=== PATIENT | female | born 1985 | race Hispanic/Latino ===

== ENCOUNTER 2017-10-26 20:35 | Emergency (ER) | payer OTHER ==
[~2017-10-26] VITALS: Ht 154.9 cm; Wt 56.7 kg
[~2017-10-26 20:35] MED LIST: TAMIFLU75 M1 PO
--- NOTE | 2017-10-26 21:08 | ED GI/GU/ABDOMINAL COMPLAINT ---
History of Present Illness General Chief Complaint: General Adult Stated Complaint: 34 WEEKS , COMPLICATIONS Source: patient, family, old records Exam Limitations: no limitations Vital Signs & Intake/Output Vital Signs & Intake/Output Vital Signs Date Time Temp Pulse Resp B/P B/P Pulse O2 O2 Flow FiO2 Mean Ox Delivery Rate 10/27 0010 98.0 115 18 99/54 97 Room Air 10/26 2150 97 Room Air 10/269 97.9 132 20 134/63 98 Room Air ED Intake and Output 10/27 0000 10/26 1200 Intake Total 1000 Output Total Balance 1000 Intake, IV 1000 Patient 125 lb Weight Weight Reported by Patient Measurement Method Allergies Coded Allergies: No Known Allergies (08/17/17) Reconcile Medications Oseltamivir Phosphate (Tamiflu) 75 MG CAPSULE 1 CAP PO BID flu Triage Note: PT IS 33 WKS 5 DAYS . SENT TO ED BY OB FOR HYDRATION WITH LR. HAD ONE EPISODE OF VOMITTING THIS AM, HAS HAD APPROX 10 EPISODES ("SMALL AMOUNTS") OF WATERY DIARRHEA SINCE, DENIES ANY EFREN BLOOD. +NAUSEA. HR 132 IN TRIAGE. STATES HAS HAD GONZALEZ SERRATO LIKE PAINS AND "MENSTRAL CRAMPING" TYPE PAINS THROUGHOUT THE DAY. "BUT THEY ARE MUCH STRONGER" PAINS ARE IN LOW ABD AND SOMETIMES COMES UP TO UMBILICOUS, ALSO GOES INTO GROIN. CBC AWARE PATIENT IN ED AND WILL COME OVER TO CHECK ON PATIENT Triage Nurses Notes Reviewed? yes ? y Is pt currently ? No HPI: Patient is 33 weeks 5 days . There have been no problems during this . Patient woke up this morning and had diarrhea. She then had 1 episode of vomiting. She has been intermittently nauseous throughout the day and has had several episodes of diarrhea but no further episodes of vomiting. Patient is now feeling abdominal contractions. Patient comes to the emergency department for evaluation. Past History Travel History Traveled to [place] past 21 day No Medical History Any Pertinent Medical History? see below for history Neurological: NONE EENT: NONE Cardiovascular: NONE Respiratory: NONE Gastrointestinal: NONE Hepatic: NONE Renal: NONE Musculoskeletal: NONE Psychiatric: NONE Endocrine: NONE Blood Disorders: anemia Cancer(s): NONE Surgical History Surgical History: non-contributory Psychosocial History What is your primary language Pakistani Tobacco Use: Never used ETOH Use: denies use Illicit Drug Use: denies illicit drug use Family History Hx Contributory? No Review of Systems Review of Systems Constitutional: Reports: no symptoms. EENTM: Reports: no symptoms. Respiratory: Reports: no symptoms. Cardiovascular: Reports: no symptoms. GI: Reports: see HPI, abdominal pain, diarrhea, nausea, vomiting. Genitourinary: Reports: no symptoms. Musculoskeletal: Reports: no symptoms. Skin: Reports: no symptoms. Neurological/Psychological: Reports: no symptoms. Hematologic/Endocrine: Reports: no symptoms. Immunologic/Allergic: Reports: no symptoms. All Other Systems: Reviewed and Negative Physical Exam Physical Exam General Appearance: well developed/nourished, alert, awake, anxious, mild distress Head: atraumatic, normal appearance Eyes: Bilateral: PERRL, EOMI. Ears, Nose, Throat, Mouth: hearing grossly normal, DRY MUCOSA Neck: normal inspection, supple, full range of motion Respiratory: normal breath sounds, chest non-tender, no respiratory distress, lungs clear Cardiovascular: regular rate/rhythm, normal peripheral pulses Gastrointestinal: normal bowel sounds, soft, non-tender Back: normal inspection, normal range of motion Extremities: normal range of motion Neurologic/Psych: no motor/sensory deficits, awake, alert, oriented x 3, normal mood/affect Skin: intact, normal color, warm/dry Core Measures ACS in differential dx? No Sepsis Present: No Sepsis Focused Exam Completed? 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 Plan of Care: Orders Procedure Date/time Status COMPREHENSIVE METABOLIC PANEL 10/26 2120 Complete CBC WITHOUT DIFFERENTIAL 10/26 2120 Complete URINALYSIS 10/26 2058 Complete Laboratory Tests 10/26/17 2358: Urinalysis LIGHT H, Urine Color YEL, Urine Clarity HAZY H, Urine pH 6.0, Ur Specific [place] 1.020, Urine Protein NEG, Urine Ketones >=80, Urine Nitrite NEG , Urine Bilirubin NEG, Urine Urobilinogen 0.2, Ur Leukocyte Esterase TRACE H, Ur Microscopic SEDIMENT EXAMINED, Urine RBC 1-3, Urine WBC 3-5 H, Ur Epithelial Cells FEW, Urine Crystals RARE UR AC, Urine Bacteria RARE H, Urine Mucus FEW, Urine Hemoglobin NEG, Urine Glucose NEG 10/26/170: Anion Gap 16, Estimated GFR > 60, BUN/Creatinine Ratio 18.0, Glucose 77, Calcium 9.0, Total Bilirubin 1.1, AST 59 H, ALT 36, Alkaline Phosphatase 163 H, Total Protein 7.9, Albumin 4.1, Globulin 3.8, Albumin/Globulin Ratio 1.1, CBC w Diff NO MAN DIFF REQ, RBC 4.66, MCV 85.2, MCH 29.3, MCHC 34.4, RDW 16.0 H, MPV 7.3 L, Gran % 93.8 H, Lymphocytes % 4.0 L, Monocytes % 2.2, Eosinophils % 0, Basophils % 0, Absolute Granulocytes 9.7 H, Absolute Lymphocytes 0.4 L, Absolute Monocytes 0.2, Absolute Eosinophils 0, Absolute Basophils 0 Initial ED EKG: none Comments: Patient is feeling much better. Patient has received 2 L of lactated Ringer's. Patient is now able to urinate for us. Patient states that her contractions are much better and now they just feel I could Gonzalez Serrato contractions that she has been getting for the past few weeks. Departure Departure Disposition: HOME OR SELF CARE Condition: Stable Clinical Impression Primary Impression: Secondary Impressions: Diarrhea, Vomiting Referrals: Patient Has No Primary Care Dr (PCP/Family) Additional Instructions: FOLLOW UP WITH DR. SETH RETURN IF SYMPTOMS WORSEN OR FOR ANY CONCERNS Departure Forms: Customer Survey General Discharge Information Departure Forms: Customer Survey General Discharge Information
[2017-10-26 21:39] LABS: ABSOLUTE BASOPHIL COUNT 0 /CUMM (0.0-0.2); ABSOLUTE EOSINOPHIL COUNT 0 /CUMM (0.0-0.7); ABSOLUTE GRANULOCYTE CT 9.7 /CUMM (1.4-6.5); ABSOLUTE LYMPH COUNT 0.4 /CUMM (1.2-3.4); ABSOLUTE MONOCYTE COUNT 0.2 /CUMM (0.10-0.60); BASOPHIL % 0 % (0.0-2.0); EOSINOPHIL % 0 % (0-5); HEMATOCRIT 39.7 % (37-47); MEAN CORPUSCULAR HGB 29.3 PG (27.0-31.0); MEAN CORPUSCULAR HGB CONC 34.4 G/DL (33.0-37.0); MEAN CORPUSCULAR VOLUME 85.2 FL (81.0-99.0); MEAN PLATELET VOLUME 7.3 FL (7.4-10.4); PLATELET COUNT 257 /CUMM (130-400); RED BLOOD CELL CT 4.66 /CUMM (4.20-5.40); WHITE BLOOD CELL COUNT 10.4 /CUMM (4.8-10.8)
[2017-10-26 21:52] LABS: GRANULOCYTE % 93.8 % (42.2-75.2)
[2017-10-27 00:10] VITALS: BP 99/54
== END 2017-10-27 00:17 ==
LOC: ERH 20:35
PROVIDERS: Emergency Medicine
DX: O21.9 Vomiting of pregnancy, unspecified (principal); R19.7 Diarrhea, unspecified; Z3A.33 33 weeks gestation of pregnancy
CPT/HCPCS: 59025; 81001; 96365; 96375; G0463; J2405; J7120

== ENCOUNTER 2017-11-26 11:12 | Inpatient (IN) | payer OTHER ==
[~2017-11-26] VITALS: Ht 157.5 cm; Wt 56.7 kg
[2017-11-26 12:12] LABS: ABSOLUTE BASOPHIL COUNT 0 /CUMM (0.0-0.2); ABSOLUTE EOSINOPHIL COUNT 0 /CUMM (0.0-0.7); ABSOLUTE GRANULOCYTE CT 6.7 /CUMM (1.4-6.5); ABSOLUTE LYMPH COUNT 1.7 /CUMM (1.2-3.4); ABSOLUTE MONOCYTE COUNT 0.6 /CUMM (0.10-0.60); BASOPHIL % 0.4 % (0.0-2.0); EOSINOPHIL % 0.3 % (0-5); GRANULOCYTE % 73.6 % (42.2-75.2); HEMATOCRIT 36.7 % (37-47); MEAN CORPUSCULAR HGB 28.4 PG (27.0-31.0); MEAN CORPUSCULAR HGB CONC 33.3 G/DL (33.0-37.0); MEAN CORPUSCULAR VOLUME 85.2 FL (81.0-99.0); MEAN PLATELET VOLUME 7.1 FL (7.4-10.4); PLATELET COUNT 338 /CUMM (130-400); WHITE BLOOD CELL COUNT 9.1 /CUMM (4.8-10.8)
[2017-11-26 12:21] VITALS: BP 140/71
[2017-11-26] MEDS ORDERED: PRENATABS RX T1 EACH PO (12:22)
--- NOTE | 2017-11-26 19:59 | History & Physical ---
General Information and HPI MD Statement: I have seen and personally examined ZARA GOMEZ and documented this H&P. The patient is a 32 year old female at [38] weeks and [0] days gestation who presented with a chief complaint of [SROM]. History of Present Illness: This patient is a 32-year-old 4 para 2 EDC 12/09/2017 presents today with spontaneous rupture of membranes. His emanation reveals gross rupture and positive and Essure by laboratory data. care is complete and unremarkable. Past OB history significant for 2 spontaneous vaginal deliveries 3000 g each. 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 EENTM: Reports: no symptoms. Cardiovascular: Reports: no symptoms. Respiratory: Reports: no symptoms. GI: Reports: no symptoms. Genitourinary: Reports: see HPI. Musculoskeletal: Reports: no symptoms. Skin: Reports: no symptoms. Neurological/Psychological: Reports: no symptoms. Hematologic/Endocrine: Reports: no symptoms. Immunologic/Allergic: Reports: no symptoms. All Other Systems: Reviewed and Negative Exam & Diagnostic Data Last 24 Hrs of Vital Signs/I&O Vital Signs Date Time Temp Pulse Resp B/P B/P Pulse O2 O2 Flow FiO2 Mean Ox Delivery Rate 11/26 1221 140/71 Intake & Output 11/26 1600 11/26 0800 11/26 0000 Intake Total Output Total Balance Patient 125 lb Weight Obstetric Exam Wgt Gained During : 15 Pelvimetry: Gynecoid Dilation (cm): 3 Effacement (%): 50 Station: -2 Membranes: SROM Fluid: clear Fundal Height (cm): 38 Multiple Gestation? No Contractions: Every to 4 #1 - FHR Baseline: 125 Category: 1 Estimated Weight: 6.5 Presentation: Cephalic Patient for Induction? Yes Patel Score Patel Score Response Value Cervix Position: posterior 0 Cervix Consistency: soft 2 Cervix Effacement: 30-50% 1 Cervix Dilation: 3-4 cm 2 Total 5 Physical Exam: HEENT: Normocephalic atraumatic Chest: Clear to auscultation bilaterally Cardiovascular: Normal S1-S2 Abdomen: Cephalic, gravid, estimated weight 66-1/2 pounds Pelvic: 2-3 cm 50% effaced -2 station Extremities: No clubbing cyanosis or edema Neurologic: Nonfocal Labs Blood Type & Rh: O+ Antibody Screen: The uterus Hct/Hgb & Platelets #1: 38.9 12.7 358 Hct/Hgb & Platelets #2: 39.2, 12.8, 309 Rubella: Immune VDRL #1: Nonreactive VDRL #2: Nonreactive HbsAg: Negative HIV #1: Negative HIV #2 Negative 1 Hr P Group B Strep: Negative Initial Ultrasound: The normal limits Anatomy Ultrasound: Within normal limits Ultrasound for EFW: 6 pounds Genetic Testing: Negative Last 24 Hrs of Labs/Lfo: Laboratory Tests 11/26/17 1340: Urine Color YEL, Urine Clarity HAZY H, Urine pH 7.0, Ur Specific [place] 1.010, Urine Protein 30 H, Urine Ketones NEG, Urine Nitrite NEG, Urine Bilirubin NEG, Urine Urobilinogen 0.2, Ur Leukocyte Esterase SMALL H, Ur Microscopic SEDIMENT EXAMINED, Urine RBC 1-3, Urine WBC 15-25 H, Ur Epithelial Cells MANY H, Urine Bacteria MANY H, Urine Hemoglobin TRACE-INTACT, Urine Glucose NEG 11/26/17 1153: CBC w Diff NO MAN DIFF REQ, RBC 4.30, MCV 85.2, MCH 28.4, MCHC 33.3, RDW 16.0 H , MPV 7.1 L, Gran % 73.6, Lymphocytes % 19.0 L, Monocytes % 6.7, Eosinophils % 0.3, Basophils % 0.4, Absolute Granulocytes 6.7 H, Absolute Lymphocytes 1.7, Absolute Monocytes 0.6, Absolute Eosinophils 0, Absolute Basophils 0 11/26/17 1120: Membrane Rupture POSITIVE Microbiology 11/26 1730 URINE ROUT: Urine Culture - RECD Assessment/Plan Assessment/Plan: Spontaneous rupture of membranes at term negative GBS Plan: Pitocin augmentation As Ranked By This Provider Problem List: 1. Core Measures Venous Thromboembolism VTE Risk Factors / No Mechanical VTE Prophylaxis d/t LowRisk-No Interven Req'd No VTE Pharm Prophylaxis d/t Bleeding (Active)
--- NOTE | 2017-11-26 20:31 | PN- OBGYN ---
Surgical Brief Attending Note Brief Attending Note: Assumed responsibility for this patient at [address] Lancaster. Para 2 at 38 weeks with PROM and GBBS negative Avss EFW 6-6.5lbs Catagory 1 tracing Oxytocin at 9 cc per hour Epidural in place Plan. Induction for PROM. Titrate oxytocin to achieve cervical change. Limit examinations. Momin in place for monitoring of urine output. Anticipate vaginal .
--- NOTE | 2017-11-26 23:10 | PN- OBGYN ---
Surgical Brief Attending Note Brief Attending Note: Informed by Nursing of Catagory 2 tracing earlier. Now Catagory 1 /-1 Gynecoid pelvis Oxytocin was at 13 with Catagory 2 It was decreased to 6 cc per hour. Patient in my opinion no longer needs same so will hold the oxytocin Hct 36 Plt 338 and O positive Anticipate vaginal Patient is Religious and not accepting of blood products. Watch for atony. On only 10 hours of oxytocin at present.
--- NOTE | 2017-11-27 00:49 | PN- OBGYN ---
Surgical Brief Attending Note Brief Attending Note: Catagory 2 tracing Rim/-1/OP rotation. Despite epidural being dc'd patient has no urge to push. I will proceed with abdominal delivery for nonreassuring status. Moderate variability present however baseline increasing with recurrent decelerations. Team called in for delivery. Consent obtained with risks of pain, bleeding, infection, damage to local organs , vte, wound complications. All questions answered.
--- NOTE | 2017-11-27 02:29 | Operative Report ---
Operative/Inv Procedure Report Surgery Date: 11/27/17 Name of Procedure: LTCS Pre-Operative Diagnosis: Term PROM Nonreassuring status Post-Operative Diagnosis: Same Right occiput transverse rotation Estimated Blood Loss: 600 cc Surgeon/Smash Fixer: Dusty Jimenez MD, Regina MD Anesthesia: Epidural Monitors: Per Anesthesiology IV Fluids: 1500 Implants: NA Urine Output: 400 Drains: NA Specimens: Cord gases Microbiology: Urine culture Complications: None Condition: Stable to RR stable to RR Operative Indication: 32 year old female with PROM undergoing induction for same. Dilated to Rim/-1 and noted with Catagory 2 tracing. Decision made for csection secondary to nonreassuring status. Consent obtained with risks of pain, bleeding, infection, damage to local organs, vte, wound complications reviewed. Operative/Procedure Note Note: Patient was brought to the OR and prepped in usual fashion. Time out done and antibiotics were given prior to incision. Phannensteil incision made and carried through to fascia. Fascia was dissected manually and superior and inferior edges were dissected from underlying rectus muscle. Peritoneum entered bluntly and bladder blade introduced. Abdomen inspected and Bandle's ring noted. Bladder flap created and dispaced caudally. Hysterotomy incision made and LTCS performed and fetus delivered in ROT rotation. No nuchal cord however corporal cord around both legs. given to Peds who was present. Cord gas sample obtained and sent for analysis. PH of 7.29. Placenta was removed intact and 3 vessel. Uterus was tonic with oxytocin only. Uterus exteriorized and cleared of clots and membranes. 2 layer uterine closure with 0-vicryl done. Uterus replaced and abdomen irrigated with normal saline. Hysterotomy incision intact and hemostatic and Katherin 1 gram applied to area. Peritoneum reapproximated and muscle closed with 2-0 vicryl. Fascia closed with 0-vicryl and subcutaneous tissue closed with 3-0 plain. Skin closed with stables. Bandage applied and uterus expressed of clots. Instrument and lap count correct x 2. Findings: No pelvic adhesions Normal uterus tubes and ovaries Liveborn female with Apgars of 9 and 9 Weight [id number] Blood tinged urine in albert prior to start of case however clear at end of case. ROT rotation Corporal cord around legs Nonfoul smelling fluid Ph 7.29 Discharge Disposition: TO RR CC: Leona Harrell MD,Ulisses
--- NOTE | 2017-11-27 02:31 | Labor & Delivery Summary ---
Delivery Summary Section: Section: primary Indication: Nonreassuring status Anesthesia: Epidural Placenta: Placenta: normal, 3 vessel Anesthesia: Epidural Cord PH Value: 7.29 Baby's Weight: [id number] Apgars - 1 Min: 9 Apgars - 5 Min: 9 Additional Comments: See operative report
[2017-11-28 09:40] LABS: ABSOLUTE BASOPHIL COUNT 0.1 /CUMM (0.0-0.2); ABSOLUTE EOSINOPHIL COUNT 0 /CUMM (0.0-0.7); ABSOLUTE GRANULOCYTE CT 22.8 /CUMM (1.4-6.5); ABSOLUTE LYMPH COUNT 0.9 /CUMM (1.2-3.4); ABSOLUTE MONOCYTE COUNT 0.5 /CUMM (0.10-0.60); BASOPHIL % 0.3 % (0.0-2.0); EOSINOPHIL % 0 % (0-5); GRANULOCYTE % 94.3 % (42.2-75.2); HEMATOCRIT 32.4 % (37-47); MEAN CORPUSCULAR HGB 28.6 PG (27.0-31.0); MEAN CORPUSCULAR HGB CONC 32.8 G/DL (33.0-37.0); MEAN CORPUSCULAR VOLUME 87.2 FL (81.0-99.0); MEAN PLATELET VOLUME 7.6 FL (7.4-10.4); PLATELET COUNT 295 /CUMM (130-400); RBC DISTRIBUTION WIDTH 16.6 % (11.5-14.5); RED BLOOD CELL CT 3.72 /CUMM (4.20-5.40)
[2017-11-28 09:49] LABS: WHITE BLOOD CELL COUNT 24.2 /CUMM (4.8-10.8)
--- NOTE | 2017-11-28 10:55 | PN- Post Delivery/GYN ---
Subjective Subjective: No complaints Objective Last 24 Hrs of Vital Signs/I&O No complaints Physical Exam: Female in no apparent distress HEENT anicteric Abdomen soft Fundus firm nontender Incision clean dry and intact 1 I tricia at the corner elevated to be removed on lochia minimal extremities +2 edema negative Homans Assessment/Plan Assessment/Plan Assessment is status post primary section for nonreassuring heart tracing Plan is for all discharge in a.m.
--- NOTE | 2017-11-29 11:06 | PN- Post Delivery/GYN ---
Subjective Subjective: Plan of increased size of right leg with swelling and pins and needles she had some issues with pain management yesterday switch from dilated to Percocet Percocet was given for pain control within 15 minutes Objective Last 24 Hrs of Vital Signs/I&O vitalSigns stable Physical Exam: Petite female in no apparent distress HEENT anicteric Lungs clear Abdomen soft distention Fundus firm nontender Incision clean dry and intact Lochia minimal Extremities negative Homans bilaterally the right leg is one third larger without pitting edema but swollen Assessment/Plan Assessment/Plan Assessment status post section rule out deep vein thrombosis in the right leg plan continue observation increase ambulation and a venous Doppler of both legs
--- NOTE | 2017-11-29 12:26 | ULTRASOUND REPORT ---
EXAMINATION: US TRIPLEX LOWER EXTREMITY, RIGHT CLINICAL INFORMATION: Edema and swelling. COMPARISON: None TECHNIQUE: Color-flow triplex imaging with spectral analysis and compression Doppler were performed on the lower extremity. FINDINGS: Respiratory variation, normal compression and augmented flow are noted throughout the lower extremity. The visualized common femoral vein, superficial femoral vein, profunda femoral vein, popliteal vein and midcalf peroneal and posterior tibial venous segments show no evidence of deep venous thrombosis. There is no Huff's cyst. IMPRESSION: No evidence of deep venous thrombosis involving the lower extremity.
[2017-11-30] MEDS ORDERED: PERCOCET 5-3251 EACH PO (09:56)
[2017-11-30] MEDS ORDERED: PRENATABS RX T1 EACH PO (09:56)
[2017-11-30] MEDS ORDERED: IBUPROFEN800 M1 PO (09:56)
[2017-11-30] MEDS ORDERED: DOCUSATE SODIU100 M3 PO (09:56)
--- NOTE | 2017-11-30 09:59 | PN- Post Delivery/GYN ---
Subjective Subjective: pt c/o pulling tricia on right Review of Systems: neg Objective Last 24 Hrs of Vital Signs/I&O vss afebrile Physical Exam: incision c/d/i ff ext nt Assessment/Plan Assessment/Plan s/p c/s pod3 stble tricia removed and steristrips applied discharge Problem List: 1.
== END 2017-11-30 11:25 | DRG 540 ==
LOC: CBCO 11:12 → GNO 11:39 → CBCO 12-09 08:00
PROVIDERS: Obstetrics & Gynecology
PROC: 10D00Z1 Extraction of Products of Conception, Low, Open Approach (ICD-10-PCS; principal; 2017-11-27)
DX: O76 Abnormality in fetal heart rate and rhythm complicating labor and delivery (principal); Z3A.38 38 weeks gestation of pregnancy; Z37.0 Single live birth
CPT/HCPCS: GNOP; GNOS; 81001; 84112; 87086; J0131; J0690; J1650; J1885; J7120